=== PATIENT | male | born 2000 | race Two or more races ===

== ENCOUNTER 2023-12-02 14:12 | Emergency (ER) | payer OTHER ==
[~2023-12-02] VITALS: Ht 172.7 cm; Wt 58.1 kg
[~2023-12-02 14:12] MED LIST: CEPHALEXIN500 M1 PO
== END 2023-12-02 15:36 | disposition home or self-care (01) ==
LOC: ER 14:13
DX: Z48.02 Encounter for removal of sutures (principal)